=== PATIENT | female | born 1960 | race Caucasian/White ===

== ENCOUNTER 2019-07-30 14:39 | Inpatient (IN) | payer MEDICAID, OTHER ==
[~2019-07-30] VITALS: Ht 157.5 cm; Wt 77.0 kg
[2019-07-30 15:15] LABS: BASOPHILS # (AUTO) 0.1 X10'3 (0-0.2); BASOPHILS % (AUTO) 0.9 % (0-1); EOSINOPHILS % (AUTO) 0 % (0-6); HEMATOCRIT 37.2 % (35.0-45.0); HEMOGLOBIN 12.4 g/dl (12.0-16.0); LYMPHOCYTES # (AUTO) 0.7 X10'3 (1.1-4.8); LYMPHOCYTES % (AUTO) 5.5 % (21-51); MEAN CORPUSCULAR HEMOGLOBIN 32.9 PG (27.0-31.0); MEAN CORPUSCULAR HGB CONC 33.3 g/dL (33.0-36.5); MEAN CORPUSCULAR VOLUME 98.7 FL (78-98); MEAN PLATELET VOLUME 9.8 FL (7.4-10.4); MONOCYTES # (AUTO) 0.5 X10'3 (0-0.9); NEUTROPHILS # (AUTO) 12.1 X10'3 (1.8-7.7); NEUTROPHILS % (AUTO) 89.6 % (42-75); PLATELET COUNT 518 X10'3 (140-440); RED BLOOD COUNT 3.77 X10'6 (4.20-5.60); RED CELL DISTRIBUTION WIDTH 14.7 % (11.5-14.5); WHITE BLOOD COUNT 13.5 X10'3 (4.5-11.0)
[2019-07-30 15:30] LABS: ALANINE AMINOTRANSFERASE 39 U/L (12-78); ALBUMIN 3.3 G/DL (3.4-5.0); ALBUMIN/GLOBULIN RATIO 0.8 (1.1-1.5); ALKALINE PHOSPHATASE 63 IU/L (46-116); ANION GAP 10 (8-16); ASPARTATE AMINO TRANSFERASE 38 U/L (10-37); BILIRUBIN,TOTAL 0.3 MG/DL (0.1-1.0); BLOOD UREA NITROGEN 16 MG/DL (7-18); BUN/CREATININE RATIO 22.2 (6.6-38.0); CALCIUM 9.2 MG/DL (8.5-10.1); CHLORIDE 103 MMOL/L (99-107); CREATININE 0.72 MG/DL (0.40-0.90); GLUCOSE 133 MG/DL (70-104); POTASSIUM 4.3 MMOL/L (3.5-5.1); SODIUM 138 MMOL/L (135-145); TOTAL CARBON DIOXIDE 25.5 MMOL/L (24-32); TOTAL PROTEIN 7.4 G/DL (6.4-8.2); eGFR 83 ML/MIN
[2019-07-30] MEDS ORDERED: LORazepam 2 mg/ml vial IV ONE (15:50)
--- NOTE | 2019-07-30 16:08 | NUR ---
EDUARDO: [phone]
[2019-07-30] MEDS ORDERED: racepinephrine 11.25mg/0.5ml nebule IH ONE (17:00)
[2019-07-30] MEDS ORDERED: iohexol 350MG/ML 100ml bottle IV ONE (17:31)
[2019-07-30 18:22] LABS: URINE AMPHETAMINE SCREEN NEGATIVE (Neg); URINE BARBITUATE SCREEN NEGATIVE (Neg); URINE BENZODIAZEPINES SCREEN NEGATIVE (Neg); URINE CANNABINOID SCREEN POSITIVE (Neg); URINE COCAINE SCREEN NEGATIVE (Neg); URINE METHADONE SCREEN NEGATIVE (Neg); URINE OPIATE SCREEN NEGATIVE (Neg); URINE PHENCYCLIDINE SCREEN NEGATIVE (Neg)
[2019-07-30] MEDS ORDERED: LORazepam 2 mg/ml vial IV STA (19:19)
[2019-07-30] MEDS ORDERED: magnesium 2GM in 50ml NS 50 ML IV PRN (19:25)
[2019-07-30] MEDS ORDERED: thiamine 100mg/ml 2ml inj. IV ONE (19:25)
[2019-07-30] MEDS ORDERED: acetaminophen 325mg tablet PO PRN (19:25)
[2019-07-30] MEDS ORDERED: haloperidol lactate 5mg/ml inj IM PRN (19:25)
[2019-07-30] MEDS ORDERED: magnesium Cl slow-release 64mg tablet PO PRN (19:25)
[2019-07-30] MEDS ORDERED: magnesium hydroxide 30ml (MOM) UD suspension PO PRN (19:25)
[2019-07-30] MEDS ORDERED: haloperidol 5mg tablet PO PRN (19:25)
[2019-07-30] MEDS ORDERED: mag hydrox/Alum hydrox/simeth 30ml oral suspension PO PRN (19:25)
[2019-07-30] MEDS ORDERED: potassium CL 10mEq/100ml bag 100 ML IV PRN ×2 (19:25)
[2019-07-30] MEDS ORDERED: potassium Cl 20 mEq SR tablet PO PRN (19:25)
[2019-07-30] MEDS ORDERED: ipratropium/albuterol 3ml nebule NEB PRN (19:25)
[2019-07-30] MEDS ORDERED: magnesium 4gm in 100ml NS 100 ML IV PRN (19:25)
[2019-07-30] MEDS ORDERED: dextrose 50%-water 50ml dispensing syringe IV PRN (19:25)
[2019-07-30] MEDS ORDERED: AMLO-93 PO (19:26)
[2019-07-30] MEDS ORDERED: ESCI10TA54 PO (19:27)
[2019-07-30] MEDS ORDERED: QUET25TA PO (19:27)
[2019-07-30] MEDS ORDERED: hydrOXYzine 25 MG tablet PO STA (19:30)
[2019-07-30] MEDS ORDERED: ziprasidone IM 20mg inj **IM only IM PRN (19:30)
[2019-07-30] MEDS ORDERED: hydrOXYzine 25 MG tablet PO PRN (19:30)
[2019-07-30] MEDS ORDERED: atenolol 25mg tablet PO PRN (19:35)
[2019-07-30] MEDS: normal saline 1000ml 1,000 ML IV SCH (19:36)
[2019-07-30] MEDS: budesonide 0.5mg/2ml UD nebule IH SCH (20:19)
[2019-07-30] MEDS: ipratropium/albuterol 3ml nebule NEB SCH (20:50)
[2019-07-30] MEDS: QUEtiapine 25mg tablet PO SCH (21:57)
--- NOTE | 2019-07-30 22:00 | NUR ---
Patient in room PCU 3025. I have received report from Lacie CAST and had the opportunity to ask questions and assume patient care.
[2019-07-30 23:00] VITALS: BP 138/86
[2019-07-31] MEDS: ipratropium/albuterol 3ml nebule NEB SCH ×4 (02:06→19:26)
[2019-07-31 03:00] VITALS: BP 127/69
[2019-07-31 03:52] LABS: BASOPHILS # (AUTO) 0.2 X10'3 (0-0.2); BASOPHILS % (AUTO) 1.8 % (0-1); EOSINOPHILS # (AUTO) 0.2 X10'3 (0-0.9); EOSINOPHILS % (AUTO) 1.4 % (0-6); HEMATOCRIT 35.1 % (35.0-45.0); HEMOGLOBIN 11.8 g/dl (12.0-16.0); LYMPHOCYTES # (AUTO) 2.1 X10'3 (1.1-4.8); LYMPHOCYTES % (AUTO) 16.8 % (21-51); MEAN CORPUSCULAR HEMOGLOBIN 32.8 PG (27.0-31.0); MEAN CORPUSCULAR HGB CONC 33.5 g/dL (33.0-36.5); MEAN CORPUSCULAR VOLUME 97.9 FL (78-98); MEAN PLATELET VOLUME 10.7 FL (7.4-10.4); MONOCYTES # (AUTO) 1.2 X10'3 (0-0.9); NEUTROPHILS # (AUTO) 8.6 X10'3 (1.8-7.7); PLATELET COUNT 494 X10'3 (140-440); RED BLOOD COUNT 3.58 X10'6 (4.20-5.60); RED CELL DISTRIBUTION WIDTH 14.6 % (11.5-14.5); WHITE BLOOD COUNT 12.2 X10'3 (4.5-11.0)
[2019-07-31 03:59] LABS: ALANINE AMINOTRANSFERASE 33 U/L (12-78); ALBUMIN 2.8 G/DL (3.4-5.0); ALBUMIN/GLOBULIN RATIO 0.8 (1.1-1.5); ALKALINE PHOSPHATASE 52 IU/L (46-116); ANION GAP 12 (8-16); ASPARTATE AMINO TRANSFERASE 31 U/L (10-37); BILIRUBIN,TOTAL 0.4 MG/DL (0.1-1.0); BLOOD UREA NITROGEN 19 MG/DL (7-18); BUN/CREATININE RATIO 23.2 (6.6-38.0); CALCIUM 9.1 MG/DL (8.5-10.1); CHLORIDE 106 MMOL/L (99-107); CREATININE 0.82 MG/DL (0.40-0.90); GLUCOSE 85 MG/DL (70-104); POTASSIUM 4.1 MMOL/L (3.5-5.1); SODIUM 140 MMOL/L (135-145); TOTAL CARBON DIOXIDE 21.8 MMOL/L (24-32); TOTAL PROTEIN 6.4 G/DL (6.4-8.2); eGFR 72 ML/MIN
[2019-07-31 04:02] LABS: MAGNESIUM 1.7 MG/DL (1.5-2.4)
[2019-07-31 04:35] LABS: LARGE PLATELETS FEW; PLATELET ESTIMATE INCREASED
--- NOTE | 2019-07-31 05:18 | NUR ---
pt stated she want to keep her wallet in the closet
[2019-07-31] MEDS: normal saline 1000ml 1,000 ML IV SCH ×2 (05:40→15:21)
[2019-07-31] MEDS: ondansetron/PF 4mg/2ml inj IV PRN (05:49)
--- NOTE | 2019-07-31 06:30 | NUR ---
Problems reprioritized. Patient report given, questions answered & plan of care reviewed with Yajaira Boyd.
[2019-07-31 07:00] VITALS: BP 141/86
[2019-07-31] MEDS: budesonide 0.5mg/2ml UD nebule IH SCH ×2 (07:08→19:26)
--- NOTE | 2019-07-31 07:37 | NUR ---
Patient in room PCU 3025. I have received report from [facility] and had the opportunity to ask questions and assume patient care.
[2019-07-31] MEDS: K and/or MAG REPLACEMENT MC SCH (08:00)
[2019-07-31] MEDS: enoxaparin 40mg/0.4ml syringe SQ SCH (09:18)
[2019-07-31 11:22] VITALS: BP 118/75
[2019-07-31] MEDS: nicotine 7mg patch - 24hr TD SCH (12:56)
[2019-07-31] MEDS: LORazepam 2 mg/ml vial IV PRN ×2 (14:31→17:07)
--- NOTE | 2019-07-31 14:33 | NUR ---
Patient becoming extremly agitated. Ripped out IV and is becoming aggressive with staff. 1:1 companionship and active listening had minimal effects. Replaced 20 g PIV to LAC. PRN Ativan given, will continue to monitor.
[2019-07-31 15:00] VITALS: BP 109/64
--- NOTE | 2019-07-31 15:02 | NUR ---
Patient is resting comfortably, ativan has been effective at this time. Will continue to monitor.
--- NOTE | 2019-07-31 17:24 | NUR ---
3027J - Alexus Gonzalez, increased agitation and dyspnea. Ativan given X 2 FYI. Sputum culture preliminary report in. Pt. C/O flank pain and urgency and painful urination. Do you want a UA? Meggan CAST PCU
--- NOTE | 2019-07-31 17:25 | NUR ---
Dr. Jacob called back and declined UA. Requested to administer Geodon. Informed him of Ativan administration and he requested to give Geodon.
--- NOTE | 2019-07-31 17:34 | NUR ---
Patient attempting to climb out of bed, aggressive with staff and Ativan administration has been ineffective. MD ordered to give IM Geodon. Administered as ordered. Patient is resting comfortably on her side. Will continue to monitor.
--- NOTE | 2019-07-31 18:44 | NUR ---
Problems reprioritized. Patient report given, questions answered & plan of care reviewed with Amelie, patient transferring to the BR with a Tech, in no apparent distress at this time.
--- NOTE | 2019-07-31 18:45 | NUR ---
Patient in room PCU 3025. I have received report from SEGUN Broderick and had the opportunity to ask questions and assume patient care.
[2019-07-31 19:00] VITALS: BP 129/74
[2019-07-31] MEDS: QUEtiapine 25mg tablet PO SCH (20:38)
[2019-07-31 23:00] VITALS: BP 128/84
[2019-08-01] MEDS: ipratropium/albuterol 3ml nebule NEB SCH ×4 (01:19→20:56)
[2019-08-01 03:00] VITALS: BP 135/66
[2019-08-01] MEDS: normal saline 1000ml 1,000 ML IV SCH (03:07)
[2019-08-01 05:18] LABS: BASOPHILS # (AUTO) 0.3 X10'3 (0-0.2); BASOPHILS % (AUTO) 1.5 % (0-1); EOSINOPHILS # (AUTO) 0.4 X10'3 (0-0.9); EOSINOPHILS % (AUTO) 2.6 % (0-6); HEMATOCRIT 33.3 % (35.0-45.0); HEMOGLOBIN 11.2 g/dl (12.0-16.0); LYMPHOCYTES # (AUTO) 2.5 X10'3 (1.1-4.8); LYMPHOCYTES % (AUTO) 14.8 % (21-51); MEAN CORPUSCULAR HEMOGLOBIN 32.9 PG (27.0-31.0); MEAN CORPUSCULAR HGB CONC 33.6 g/dL (33.0-36.5); MEAN CORPUSCULAR VOLUME 98.1 FL (78-98); MEAN PLATELET VOLUME 10.2 FL (7.4-10.4); MONOCYTES % (AUTO) 11.8 % (2-12); NEUTROPHILS # (AUTO) 11.5 X10'3 (1.8-7.7); NEUTROPHILS % (AUTO) 69.3 % (42-75); PLATELET COUNT 529 X10'3 (140-440); RED CELL DISTRIBUTION WIDTH 15.2 % (11.5-14.5); WHITE BLOOD COUNT 16.6 X10'3 (4.5-11.0)
[2019-08-01 05:25] LABS: ALANINE AMINOTRANSFERASE 24 U/L (12-78); ALBUMIN 2.6 G/DL (3.4-5.0); ALBUMIN/GLOBULIN RATIO 0.8 (1.1-1.5); ALKALINE PHOSPHATASE 47 IU/L (46-116); ANION GAP 10 (8-16); ASPARTATE AMINO TRANSFERASE 21 U/L (10-37); BILIRUBIN,TOTAL 0.2 MG/DL (0.1-1.0); BLOOD UREA NITROGEN 18 MG/DL (7-18); BUN/CREATININE RATIO 21.2 (6.6-38.0); CALCIUM 8.6 MG/DL (8.5-10.1); CHLORIDE 111 MMOL/L (99-107); CREATININE 0.85 MG/DL (0.40-0.90); GLUCOSE 92 MG/DL (70-104); MAGNESIUM 1.6 MG/DL (1.5-2.4); POTASSIUM 3.7 MMOL/L (3.5-5.1); SODIUM 145 MMOL/L (135-145); TOTAL CARBON DIOXIDE 23.6 MMOL/L (24-32); eGFR 69 ML/MIN
[2019-08-01 06:00] VITALS: BP 109/63
--- NOTE | 2019-08-01 06:20 | NUR ---
Patient in room PCU 3025. I have received report from SEGUN Kinsey and had the opportunity to ask questions and assume patient care.
--- NOTE | 2019-08-01 06:30 | NUR ---
Problems reprioritized. Patient report given, questions answered & plan of care reviewed with SEGUN Fernandez.
[2019-08-01] MEDS: budesonide 0.5mg/2ml UD nebule IH SCH ×2 (07:42→20:56)
[2019-08-01] MEDS: ondansetron/PF 4mg/2ml inj IV PRN ×2 (07:59→14:28)
--- NOTE | 2019-08-01 07:59 | NUR ---
Zofran would not scan before administration. Zofran manually administered.
[2019-08-01] MEDS: K and/or MAG REPLACEMENT MC SCH (08:00)
[2019-08-01] MEDS: furosemide 20 MG/2 ML vial IV SCH ×2 (08:50→20:10)
[2019-08-01] MEDS: enoxaparin 40mg/0.4ml syringe SQ SCH (08:51)
[2019-08-01] MEDS: nicotine 7mg patch - 24hr TD SCH (08:52)
[2019-08-01 11:00] VITALS: BP 154/79
[2019-08-01 15:00] VITALS: BP 130/71
[2019-08-01 18:00] VITALS: BP 140/76
--- NOTE | 2019-08-01 18:38 | NUR ---
Problems reprioritized. Patient report given, questions answered & plan of care reviewed with SEGUN Muller.
--- NOTE | 2019-08-01 18:55 | NUR ---
Patient in room PCU 3024. I have received report from Rebecca CAST and had the opportunity to ask questions and assume patient care.
[2019-08-01] MEDS ORDERED: LORazepam 2 mg/ml vial IV PRN (19:25)
--- NOTE | 2019-08-01 19:55 | NUR ---
Pt reported passing a portion of her kidney stone and feeling some pain on her left flank, will keep monitoring Addendum: 08/01/19 at 2313 by Yohana Howard RN CALLED about pt pain on right groin/lower ab, he orded Cunningham 5 once and UA
[2019-08-01] MEDS: QUEtiapine 25mg tablet PO SCH (20:09)
[2019-08-01] MEDS: LORazepam 1 MG tablet PO PRN (20:10)
[2019-08-01 22:00] VITALS: BP 138/55
[2019-08-01] MEDS ORDERED: HYDROcodone/acetaminophen 5mg/325mg tablet PO ONE (22:45)
[2019-08-02 01:12] LABS: CLARITY,URINE CLEAR (Clear); COLOR,URINE YELLOW (Yellow); GLUCOSE, URINE NEGATIVE (Neg); KETONES,URINE NEGATIVE (Neg); LEUKOCYTE ESTERASE ,URINE NEGATIVE (Neg); NITRITES, URINE NEGATIVE (Neg); OCCULT BLOOD,URINE NEGATIVE (Neg); PH,URINE 5.5 (4.8-8.0); PROTEIN,URINE NEGATIVE (Neg); UROBILINOGEN,URINE 0.2 E.U/dL (0.2-1.0)
[2019-08-02 01:13] LABS: UA COLLECTION TYPE CLN CATCH MIDSTREAM
[2019-08-02 02:00] VITALS: BP 125/54
[2019-08-02] MEDS: ipratropium/albuterol 3ml nebule NEB SCH ×3 (03:10→14:24)
[2019-08-02] MEDS: ondansetron/PF 4mg/2ml inj IV PRN (05:55)
[2019-08-02 06:00] VITALS: BP 133/69
[2019-08-02 06:00] LABS: BASOPHILS # (AUTO) 0.2 X10'3 (0-0.2); BASOPHILS % (AUTO) 1.3 % (0-1); EOSINOPHILS # (AUTO) 0.6 X10'3 (0-0.9); EOSINOPHILS % (AUTO) 4.3 % (0-6); HEMATOCRIT 30.8 % (35.0-45.0); HEMOGLOBIN 10.3 g/dl (12.0-16.0); LYMPHOCYTES # (AUTO) 2.3 X10'3 (1.1-4.8); LYMPHOCYTES % (AUTO) 17.3 % (21-51); MEAN CORPUSCULAR HGB CONC 33.4 g/dL (33.0-36.5); MEAN PLATELET VOLUME 10.2 FL (7.4-10.4); MONOCYTES # (AUTO) 2.1 X10'3 (0-0.9); MONOCYTES % (AUTO) 16.2 % (2-12); NEUTROPHILS % (AUTO) 60.9 % (42-75); PLATELET COUNT 465 X10'3 (140-440); RED BLOOD COUNT 3.11 X10'6 (4.20-5.60); WHITE BLOOD COUNT 13.1 X10'3 (4.5-11.0)
[2019-08-02 06:06] LABS: ALANINE AMINOTRANSFERASE 19 U/L (12-78); ALBUMIN 2.5 G/DL (3.4-5.0); ALBUMIN/GLOBULIN RATIO 0.8 (1.1-1.5); ALKALINE PHOSPHATASE 43 IU/L (46-116); ANION GAP 10 (8-16); ASPARTATE AMINO TRANSFERASE 12 U/L (10-37); BILIRUBIN,TOTAL 0.2 MG/DL (0.1-1.0); BLOOD UREA NITROGEN 19 MG/DL (7-18); BUN/CREATININE RATIO 23.2 (6.6-38.0); CALCIUM 8.2 MG/DL (8.5-10.1); CHLORIDE 107 MMOL/L (99-107); CREATININE 0.82 MG/DL (0.40-0.90); GLUCOSE 90 MG/DL (70-104); MAGNESIUM 1.4 MG/DL (1.5-2.4); POTASSIUM 3.4 MMOL/L (3.5-5.1); SODIUM 143 MMOL/L (135-145); TOTAL CARBON DIOXIDE 26.2 MMOL/L (24-32); TOTAL PROTEIN 5.7 G/DL (6.4-8.2); eGFR 72 ML/MIN
--- NOTE | 2019-08-02 06:20 | NUR ---
Patient in room PCU 3024A. I have received report from Yohana CAST and had the opportunity to ask questions and assume patient care.
--- NOTE | 2019-08-02 06:30 | NUR ---
Problems reprioritized. Patient report given, questions answered & plan of care reviewed with Liza CAST.
[2019-08-02 07:33] LABS: TOTAL CELLS COUNTED 100
[2019-08-02] MEDS: budesonide 0.5mg/2ml UD nebule IH SCH (07:34)
[2019-08-02 07:38] LABS: PLATELET ESTIMATE INCREASED
[2019-08-02] MEDS: furosemide 20 MG/2 ML vial IV SCH (07:42)
[2019-08-02] MEDS: nicotine 7mg patch - 24hr TD SCH (07:42)
[2019-08-02] MEDS: enoxaparin 40mg/0.4ml syringe SQ SCH (07:42)
[2019-08-02] MEDS: potassium Cl 20 mEq SR tablet PO PRN ×2 (07:43→12:51)
[2019-08-02] MEDS: LORazepam 1 MG tablet PO PRN ×3 (07:43→15:40)
[2019-08-02] MEDS ORDERED: FURO-150 PO (08:28)
[2019-08-02] MEDS ORDERED: LORA-269 PO (08:28)
[2019-08-02] MEDS: K and/or MAG REPLACEMENT MC SCH (08:56)
[2019-08-02 11:00] VITALS: BP 143/54
--- NOTE | 2019-08-02 13:20 | NUR ---
Patient intermittently anxious about being in the hospital and plan for discharge. Active listening utilized, guidance and reassurance provided to the patient. Given Ativan PRN per patient request with good reported relief of anxiety. Patient is easily redirected when anxious, is making phone calls for possible rehab places which she reports is helping her control her anxiety.
[2019-08-02 15:00] VITALS: BP 148/83
--- NOTE | 2019-08-02 15:30 | NUR ---
Patient again very anxious, tearful, and restless. She reports that she has been making phone calls in an attempt to get into a rehab/detox facility. She states that she is "worked up" from "being here and dealing with everything". Reassurance provided, guided to slow breathing and calm self. I asked the patient if she has any suicidal thoughts or thoughts of self harm. She adamantly denies, reports "I just want to go somewhere quiet", and "I'm not going to kill myself, I just want to go home". Encouraged the patient to express feelings and states that she has a plan to go home with family and continue calling rehab facilities until she can find a place to go.
--- NOTE | 2019-08-02 16:41 | NUR ---
Per MD order, patient stable for discharge home. Discharge packet printed and reviewed with patient and family at bedside. Home medications returned from pharmacy and sent with patient. IV removed with cannula intact, tele monitor removed. Patient is awake and alert, has a clear plan for safe discharge. Discharge packet reviewed with patient and family. Given hard copy of Ativan PO prescription. All belongings sent with patient and family. Prescription and packet sent with patient. Patient escorted to private vehicle via wheelchair to go home with cousin.
[2019-08-03] MEDS ORDERED: LORazepam 2 mg/ml vial IV PRN (19:25)
[2019-08-03] MEDS ORDERED: LORazepam 1 MG tablet PO PRN (19:25)
== END 2019-08-02 16:23 | disposition home or self-care (01) | DRG 292 ==
LOC: ER 14:40 → ED HOLD 20:11 → PCU 3S 21:40
PROVIDERS: ADMIT Family Medicine; ATTEND Internal Medicine
PROC: B32T1ZZ Computerized Tomography (CT Scan) of Left Pulmonary Artery using Low Osmolar Contrast (ICD-10-PCS; principal; 2019-07-30)
PROC: B3201ZZ Computerized Tomography (CT Scan) of Thoracic Aorta using Low Osmolar Contrast (ICD-10-PCS; 2019-07-30)
PROC: B32S1ZZ Computerized Tomography (CT Scan) of Right Pulmonary Artery using Low Osmolar Contrast (ICD-10-PCS; 2019-07-30)
DX: I11.0 Hypertensive heart disease with heart failure (principal); I31.3 Pericardial effusion (noninflammatory); I50.813 Acute on chronic right heart failure; F29 Unspecified psychosis not due to a substance or known physiological condition; F10.20 Alcohol dependence, uncomplicated; F17.210 Nicotine dependence, cigarettes, uncomplicated; R06.1 Stridor; I27.81 Cor pulmonale (chronic); F12.90 Cannabis use, unspecified, uncomplicated; F14.90 Cocaine use, unspecified, uncomplicated; R00.0 Tachycardia, unspecified; Z79.899 Other long term (current) drug therapy; Z88.8 Allergy status to other drugs, medicaments and biological substances
CPT/HCPCS: 36415; 71045; 71275; 80053; 80305; 81003; 82140; 83605; 83735; 83880; 84484; 85025; 87040; 87070; 87081; 92508; 92616; 93005; 93306; 94640; 94667; 94668; 94760; 96374; 96375; 96376; 97110; 97116; 97161; 97530; 97535; 99285; G0378; J1650; J1940; J2060; J2405; J3411; J3486; J7030; J7626; Q9967; Z7610

== ENCOUNTER 2019-08-23 13:42 | Emergency (ER) | payer OTHER ==
[~2019-08-23] VITALS: Ht 158.8 cm; Wt 81.0 kg
[~2019-08-23 13:42] MED LIST: AMLO-93 PO; ESCI10TA54 PO; FURO-150 PO; LORA-269 PO
[2019-08-23] MEDS ORDERED: LORazepam 0.5 MG tablet PO ONE (14:40)
[2019-08-23] MEDS ORDERED: HYDR-3686 PO (14:40)
[2019-08-23] MEDS ORDERED: ACET-1939 PO (14:40)
[2019-08-23 14:49] VITALS: BP 149/90
== END 2019-08-23 14:53 | disposition home or self-care (01) ==
LOC: ER 13:42
DX: F41.9 Anxiety disorder, unspecified (principal); Z76.0 Encounter for issue of repeat prescription; F12.90 Cannabis use, unspecified, uncomplicated; F15.90 Other stimulant use, unspecified, uncomplicated; Z56.0 Unemployment, unspecified; Z88.6 Allergy status to analgesic agent; Z79.899 Other long term (current) drug therapy
CPT/HCPCS: 99283; 99284

== ENCOUNTER 2019-08-30 09:53 | Emergency (ER) | payer OTHER ==
[~2019-08-30] VITALS: Ht 157.5 cm; Wt 81.8 kg
[~2019-08-30 09:53] MED LIST changes: +ACET-1939 PO; +HYDR-3686 PO
[2019-08-30 09:56] VITALS: BP 163/95
[2019-08-30] MEDS ORDERED: LORazepam 1 MG tablet PO ONE (12:00)
== END 2019-08-30 12:12 | disposition home or self-care (01) ==
LOC: ER 09:53
DX: F41.9 Anxiety disorder, unspecified (principal); F32.9 Major depressive disorder, single episode, unspecified; F12.90 Cannabis use, unspecified, uncomplicated; F15.90 Other stimulant use, unspecified, uncomplicated; Z56.0 Unemployment, unspecified; Z88.6 Allergy status to analgesic agent; Z79.899 Other long term (current) drug therapy
CPT/HCPCS: 93005; 99284